=== PATIENT | female | born 1990 | race Caucasian/White ===

== ENCOUNTER 2019-10-15 14:47 | Emergency (ER) | payer MEDICAID ==
[~2019-10-15] VITALS: Ht 152.4 cm; Wt 78.0 kg
[2019-10-15 18:40] VITALS: BP 116/78
[2019-10-15 18:45] LABS: CLARITY URINE CLOUDY (CLEAR); COLOR URINE YELLOW (YELLOW); KETONES URINE NEGATIVE (NEGATIVE); LEUKOCYTE ESTERASE URINE 2+ (NEGATIVE); NITRITE URINE POSITIVE (NEGATIVE); OCCULT BLOOD URINE TRACE (NEGATIVE); PROTEIN URINE NEGATIVE (NEGATIVE); SPECIFIC GRAVITY URINE 1.022 (1.005-1.030); UROBILINOGEN URINE 0.2 E.U./dL (0.2-1.0)
== END 2019-10-15 19:37 | disposition home or self-care (01) ==
LOC: ER 14:47
DX: N30.81 Other cystitis with hematuria (principal); R30.0 Dysuria; F17.200 Nicotine dependence, unspecified, uncomplicated; Z97.5 Presence of (intrauterine) contraceptive device
CPT/HCPCS: 81003; 81025; 87077; 87186; 99283

== ENCOUNTER 2020-12-18 14:24 | Emergency (ER) | payer MEDICAID ==
[~2020-12-18] VITALS: Ht 152.4 cm; Wt 81.0 kg
[2020-12-18 15:26] LABS: CLARITY URINE CLOUDY (CLEAR); COLOR URINE YELLOW (YELLOW); KETONES URINE NEGATIVE (NEGATIVE); LEUKOCYTE ESTERASE URINE 3+ (NEGATIVE); NITRITE URINE POSITIVE (NEGATIVE); OCCULT BLOOD URINE 2+ (NEGATIVE); PH URINE 6.5 (4.5-8.0); PROTEIN URINE TRACE (NEGATIVE); UROBILINOGEN URINE 0.2 E.U./dL (0.2-1.0)
[2020-12-18 15:49] LABS: HCG SCREEN NEGATIVE
[2020-12-18] MEDS ORDERED: CEPHALEXIN 250MG CAPSULE PO ONE (17:00)
[2020-12-18] MEDS ORDERED: METRONIDAZOLE 250MG TABLET PO NR (18:00)
[2020-12-18] MEDS ORDERED: CEPH250C2 MT (18:08)
[2020-12-18] MEDS ORDERED: METR500T MT (18:08)
[2020-12-18 18:17] VITALS: BP 111/76
== END 2020-12-18 18:19 | disposition home or self-care (01) ==
LOC: ER 14:36
DX: N39.0 Urinary tract infection, site not specified (principal); N76.0 Acute vaginitis; Z88.0 Allergy status to penicillin; Z79.899 Other long term (current) drug therapy
CPT/HCPCS: 76856; 81003; 81025; 84703; 87210; 87491; 87591; 99284